=== PATIENT | female | born 1960 | race Caucasian/White ===

== ENCOUNTER → 2018-01-07 | Outpatient (CLI) | payer OTHER ==
[~2018-01-07] MED LIST: ALBUTEROL SULFATE 2.5 MG/3 ML NEBU. NEB ONE
== END | disposition home or self-care (01) ==
LOC: PF 09:45
PROVIDERS: ATTEND Surgery
DX: C34.90 Malignant neoplasm of unspecified part of unspecified bronchus or lung (principal); J43.9 Emphysema, unspecified; Z85.828 Personal history of other malignant neoplasm of skin; Z85.72 Personal history of non-Hodgkin lymphomas
CPT/HCPCS: 94060; 94640; J7613